=== PATIENT | female | born 1955 | race Caucasian/White ===

== ENCOUNTER 2019-06-15 10:27 | Day surgery (SDC) | payer OTHER ==
[~2019-06-15 10:27] MED LIST: Buffered Lidocaine 1% SYRIN* 1 ML/SYRINGE INTRADERM ONE; Famotidine IV* 10 MG/ML 2 ML (20 mg) IV ONE; Lactated Ringers 1000 ML Bag* 1,000 ML IV SCH
[2019-06-15] MEDS ORDERED: Famotidine IV* 10 MG/ML 2 ML (20 mg) ONE (10:46)
[2019-06-15] MEDS ORDERED: ceFAZolin 2 GM PREMIX in ORs 2 GM/50 ML BAG ONE (10:46)
[2019-06-15] MEDS ORDERED: Buffered Lidocaine 1% SYRIN* 1 ML/SYRINGE INTRADERM ONE (10:46)
[2019-06-15] MEDS ORDERED: Lidocaine 2% PF * 5 ML VIAL ONE (11:04)
[2019-06-15] MEDS ORDERED: Dexamethasone IV* 4 MG/ML 1 ML (4 MG) ONE (11:04)
[2019-06-15] MEDS ORDERED: Propofol* 10 MG/ML 20 ML BTL ONE ×2 (11:04→14:18)
[2019-06-15] MEDS ORDERED: Ondansetron INJ* 2 MG/ML VIAL ONE (11:04)
[2019-06-15] MEDS ORDERED: Midazolam* 1 MG/ML 5 ML VIAL (5 MG) ONE ×2 (11:05→13:31)
[2019-06-15] MEDS ORDERED: fentaNYL* 50 MCG/ML 2 ML VIAL (100 MCG VIAL) ONE (11:05)
[2019-06-15] MEDS ORDERED: Lidocaine 1% w EPI 1:100,000* MDV 20 ML VIAL ONE (13:00)
[2019-06-15] MEDS ORDERED: Bupivacaine 0.25% SDV PF* 10 ML VIAL INJ ONE (13:01)
[2019-06-15] MEDS ORDERED: Mineral Oil Sterile, TOPICAL* 25 ML BTL ONE (15:05)
[2019-06-15] MEDS ORDERED: Naloxone* 0.4 MG/ML 1 ML VIAL IV PRN (15:14)
[2019-06-15] MEDS ORDERED: Ondansetron INJ* 2 MG/ML VIAL IV PRN (15:14)
[2019-06-15] MEDS ORDERED: oxyCODONE/Acetamin 5/325 MG* TAB PO PRN (15:14)
[2019-06-15] MEDS ORDERED: fentaNYL* 50 MCG/ML 2 ML VIAL (100 MCG VIAL) IV PRN (15:14)
[2019-06-15 16:48] VITALS: BP 129/90
== END 2019-06-15 16:50 | disposition home or self-care (01) ==
LOC: OR 10:27
PROVIDERS: ATTEND Plastic Surgery
DX: L57.0 Actinic keratosis (principal); M19.072 Primary osteoarthritis, left ankle and foot; G43.B0 Ophthalmoplegic migraine, not intractable; Z88.2 Allergy status to sulfonamides
CPT/HCPCS: 88305; 88331; 88332; A9270-GY; J0690; J1100; J2250; J2405; J2704; J3010; J3490